=== PATIENT | female | born 1960 | race Caucasian/White ===

== ENCOUNTER → 2021-01-13 | Outpatient (CLI) | payer OTHER ==
[~2021-01-13] MED LIST: AMLODIPINE BESYL5 MG PO; B12 ACTIVE1000 MCG PO; BAYER CHEWABLE81 MG PO; CELEBREX200 MG PO; DOK100 MG PO; FLEXERIL 10 MG10 MG PO; LEVAQUIN500 MG PO; OMEPRAZOLE20 MG PO; PRAVASTATIN SOD40 MG PO; PREDNISONE 50 M50 MG PO; SYNTHROID100 MCG PO; TOPROL XL50 MG PO; TYLENOL WITH C1 EACH PO; VITAMIN D350 MC3 PO
== END ==
LOC: KOH-I 15:35
DX: R10.31 Right lower quadrant pain (principal); R10.32 Left lower quadrant pain; N20.0 Calculus of kidney; J92.9 Pleural plaque without asbestos; J94.8 Other specified pleural conditions
CPT/HCPCS: 74176

== ENCOUNTER → 2021-02-01 | Outpatient (CLI) | payer OTHER | LOC: EXRD 10:05 | DX: J92.9 Pleural plaque without asbestos (principal) | CPT/HCPCS: 71046 ==

== ENCOUNTER → 2021-02-24 | Day surgery (SDC) | payer OTHER | END | disposition home or self-care (01) | LOC: OR 07:50 | DX: K57.30 Diverticulosis of large intestine without perforation or abscess without bleeding (principal); K64.0 First degree hemorrhoids; K64.4 Residual hemorrhoidal skin tags; K31.9 Disease of stomach and duodenum, unspecified; K21.00 Gastro-esophageal reflux disease with esophagitis, without bleeding; K58.2 Mixed irritable bowel syndrome; E78.00 Pure hypercholesterolemia, unspecified; E06.3 Autoimmune thyroiditis; M79.7 Fibromyalgia; M19.90 Unspecified osteoarthritis, unspecified site; E66.3 Overweight; Z68.29 Body mass index [BMI] 29.0-29.9, adult; Z88.1 Allergy status to other antibiotic agents; Z79.82 Long term (current) use of aspirin; Z79.899 Other long term (current) drug therapy | CPT/HCPCS: J2704; J7040 ==

== ENCOUNTER → 2021-05-10 | Outpatient (CLI) | payer OTHER ==
[2021-05-10 12:53] LABS: RED BLOOD COUNT 4.76 M/UL (4.00-5.10); WHITE BLOOD COUNT 6.1 K/UL (4.5-11.0)
[2021-05-10 13:19] LABS: BUN/CREATININE RATIO 20 (0-10)
[2021-05-11 08:25] LABS: VITAMIN D, 25-HYDROXY 53.9 ng/mL (30.0-100.0)
[2021-05-11 11:34] LABS: RHEUMATOID ARTHRITIS FACTOR <10.0 IU/mL (0.0-13.9)
== END ==
LOC: LAB 10:58
PROVIDERS: Internal Medicine
DX: M25.50 Pain in unspecified joint (principal); D89.89 Other specified disorders involving the immune mechanism, not elsewhere classified; R76.8 Other specified abnormal immunological findings in serum; E55.9 Vitamin D deficiency, unspecified; M85.80 Other specified disorders of bone density and structure, unspecified site; Z79.1 Long term (current) use of non-steroidal anti-inflammatories (NSAID)
CPT/HCPCS: 36415; 80053; 83520; 85025; 86200; 86431

== ENCOUNTER → 2021-06-03 | Outpatient (CLI) | payer OTHER | LOC: EXRD 06-02 14:00 → KOH-I 10:56 | DX: M81.0 Age-related osteoporosis without current pathological fracture (principal) | CPT/HCPCS: 77080 ==

== ENCOUNTER → 2021-08-02 | Outpatient (CLI) | payer OTHER | LOC: MAMO 10:00 | DX: Z12.31 Encounter for screening mammogram for malignant neoplasm of breast (principal) | CPT/HCPCS: 77063; 77067 ==

== ENCOUNTER → 2021-09-02 | Outpatient (CLI) | payer OTHER | LOC: EXRD 13:35 | DX: M54.50 Low back pain, unspecified (principal); M47.816 Spondylosis without myelopathy or radiculopathy, lumbar region | CPT/HCPCS: 72100 ==

== ENCOUNTER → 2022-05-17 | Outpatient (CLI) | payer OTHER | LOC: KOH-I 10:07 | DX: M79.672 Pain in left foot (principal); M79.671 Pain in right foot; M19.072 Primary osteoarthritis, left ankle and foot; M19.071 Primary osteoarthritis, right ankle and foot; M20.12 Hallux valgus (acquired), left foot; M20.11 Hallux valgus (acquired), right foot; M21.622 Bunionette of left foot; M21.621 Bunionette of right foot | CPT/HCPCS: 73630 ==